=== PATIENT | female | born 1955 | race Caucasian/White ===

== ENCOUNTER 2025-07-30 12:45 | Outpatient (CLI) | payer OTHER, SELFPAY | END 2025-07-30 12:46 | disposition home or self-care (01) | PROVIDERS: Visit Provider Nurse Practitioner Family | DX: I89.0 Lymphedema, not elsewhere classified (principal); I87.2 Venous insufficiency (chronic) (peripheral); L97.322 Non-pressure chronic ulcer of left ankle with fat layer exposed | CPT/HCPCS: 11042; G0463 ==

== ENCOUNTER 2025-08-06 13:54 | Outpatient (CLI) | payer OTHER, SELFPAY | END 2025-08-06 13:55 | disposition home or self-care (01) | LOC: WOUND 13:54 | PROVIDERS: Visit Provider Nurse Practitioner Family | DX: I89.0 Lymphedema, not elsewhere classified (principal); I87.2 Venous insufficiency (chronic) (peripheral); L97.322 Non-pressure chronic ulcer of left ankle with fat layer exposed | CPT/HCPCS: 11042 ==

== ENCOUNTER 2025-08-13 14:14 | Outpatient (CLI) | payer OTHER, SELFPAY | END 2025-08-13 14:15 | disposition home or self-care (01) | LOC: WOUND 14:14 | PROVIDERS: Visit Provider Family Medicine | DX: I89.0 Lymphedema, not elsewhere classified (principal); I87.2 Venous insufficiency (chronic) (peripheral); L97.322 Non-pressure chronic ulcer of left ankle with fat layer exposed; R21 Rash and other nonspecific skin eruption | CPT/HCPCS: 97597 ==

== ENCOUNTER 2025-08-20 14:09 | Outpatient (CLI) | payer OTHER, SELFPAY | END 2025-08-20 14:10 | disposition home or self-care (01) | LOC: WOUND 14:09 | PROVIDERS: Visit Provider Nurse Practitioner Family | DX: I87.2 Venous insufficiency (chronic) (peripheral) (principal); I89.0 Lymphedema, not elsewhere classified; Z87.2 Personal history of diseases of the skin and subcutaneous tissue | CPT/HCPCS: G0463 ==